=== PATIENT | male | born 1960 | race Caucasian/White ===

== ENCOUNTER 2019-12-08 21:26 | Emergency (ER) | payer OTHER ==
[~2019-12-08] VITALS: Ht 172.7 cm; Wt 63.5 kg
[2019-12-08] MEDS ORDERED: NEURONTIN300 MG (21:51)
[2019-12-08] MEDS ORDERED: LEXAPRO20 MG (21:51)
[2019-12-09] MEDS ORDERED: LEVSIN/SL0.125 MG SL (04:44)
[2019-12-09] MEDS ORDERED: PEPCID40 MG PO (04:44)
[2019-12-09] MEDS ORDERED: ZYNCOF 20-400120 ML PO ×2 (04:44→04:45)
[2019-12-09] MEDS ORDERED: INTESTINEX680 M1 PO (04:44)
[2019-12-09] MEDS ORDERED: ZOFRAN8 MG PO (04:44)
== END 2019-12-09 05:00 ==
LOC: ER 21:26
DX: R50.9 Fever, unspecified (principal); K52.89 Other specified noninfective gastroenteritis and colitis